=== PATIENT | female | born 1975 | race Caucasian/White ===

== ENCOUNTER 2020-05-05 00:23 | Emergency (ER) | payer MEDICAID ==
[~2020-05-05] VITALS: Ht 165.1 cm; Wt 65.8 kg
[~2020-05-05 00:23] MED LIST: AMLO5TAB PO; HYDR-3229 PO
[2020-05-05 00:34] VITALS: BP 141/98
[2020-05-05] MEDS ORDERED: CEPH500C16 PO (00:54)
[2020-05-05] MEDS ORDERED: IBUP-2213 PO (00:54)
[2020-05-05 01:00] VITALS: BP 141/98
== END 2020-05-05 01:00 | disposition home or self-care (01) ==
LOC: MED 00:23
DX: L03.114 Cellulitis of left upper limb (principal); J45.909 Unspecified asthma, uncomplicated; I10 Essential (primary) hypertension; F17.210 Nicotine dependence, cigarettes, uncomplicated; Z90.49 Acquired absence of other specified parts of digestive tract
CPT/HCPCS: 99283

== ENCOUNTER 2021-11-22 07:15 | Emergency (ER) | payer MEDICAID ==
[~2021-11-22] VITALS: Ht 165.1 cm; Wt 72.1 kg
[~2021-11-22 07:15] MED LIST changes: +CEPH500C16 PO; +IBUP-2213 PO
[2021-11-22 07:28] VITALS: BP 166/95
--- NOTE | 2021-11-22 07:37 | NUR ---
PT AMB TO BED 4
[2021-11-22] MEDS ORDERED: ALBUTEROL SULFATE/IPRATROPIU 3 ML SOL IH ONE (07:40)
[2021-11-22] MEDS ORDERED: ALBUTEROL 0.083% 2.5 MG/3 ML NEBU INH ONE (07:40)
--- NOTE | 2021-11-22 07:50 | NUR ---
DR CHOI AT BEDSIDE.
--- NOTE | 2021-11-22 08:01 | NUR ---
RT AT BEDSIDE.
--- NOTE | 2021-11-22 08:06 | NUR ---
46 Y/O F C/O COUGH, SOB X 3 DAYS. PT WAS SEEN AT [facility] & GOT BREATHING TREATMENT & PREDNISONE. NKA PMH: ASTHMA, HTN
[2021-11-22] MEDS ORDERED: methylPREDNISolone SS 125 MG/2 ML VIAL IVP ONE (08:25)
[2021-11-22] MEDS ORDERED: MAG SULF 2000 MG/WATER PREMIX 50 ML IV ONE (08:25)
--- NOTE | 2021-11-22 08:33 | NUR ---
X-RAY AT BEDSIDE.
[2021-11-22] MEDS ORDERED: ATRMDI IH (10:35)
[2021-11-22] MEDS ORDERED: ALBU0.0912 INH (10:35)
[2021-11-22 10:51] VITALS: BP 110/82
--- NOTE | 2021-11-22 10:53 | NUR ---
Patient discharged with v/s stable. Written and verbal after care instructions given and explained. Patient alert, oriented and verbalized understanding of instructions. Ambulatory with steady gait. All questions addressed prior to discharge. ID band removed. Patient advised to follow up with PMD. Rx of ALBUTEROL SULFATE, IBRATROPIUM BROMIDE given. Opportunity to ask questions provided and answered.
--- NOTE | 2021-11-22 10:54 | NUR ---
The patient's care was reviewed and supervised by Talita Becerra RN.
== END 2021-11-22 10:51 | disposition home or self-care (01) ==
LOC: MED 07:15
DX: J45.901 Unspecified asthma with (acute) exacerbation (principal); I10 Essential (primary) hypertension; Z79.899 Other long term (current) drug therapy
CPT/HCPCS: 71045; 94640; 96365; 96366; 96375; 99284; J2930; J3475; Q0092

== ENCOUNTER 2021-12-20 03:45 | Emergency (ER) | payer MEDICAID ==
[~2021-12-20] VITALS: Ht 165.1 cm; Wt 72.6 kg
[~2021-12-20 03:45] MED LIST changes: +ALBU0.0912 INH; +ATRMDI IH
[2021-12-20 04:01] VITALS: BP 137/105
--- NOTE | 2021-12-20 04:07 | NUR ---
PT TAKEN TO BED 7
--- NOTE | 2021-12-20 04:27 | NUR ---
Dr. Zavaleta examining patient.
[2021-12-20] MEDS ORDERED: ALBUTEROL SULFATE/IPRATROPIU 3 ML SOL IH ONE (04:30)
--- NOTE | 2021-12-20 04:36 | NUR ---
Respiratory Therapist at bedside for respiratory intervention.
--- NOTE | 2021-12-20 04:45 | NUR ---
DUONEB TX GIVEN W 0 ADVERSE REACTIONS
[2021-12-20] MEDS ORDERED: ALBU0.0912 IH (05:14)
[2021-12-20] MEDS ORDERED: PRED20TA5 PO (05:14)
--- NOTE | 2021-12-20 05:15 | NUR ---
Pt given D/C paperwork, requesting to speak to
--- NOTE | 2021-12-20 05:39 | NUR ---
X-Ray at bedside.
[2021-12-20 06:07] LABS: BARBITURATE, URINE NEGATIVE ng/ml (NEG <=200); BENZODIAZEPINE, URINE NEGATIVE ng/mL (NEG <=200); CANNABINOID, URINE NEGATIVE ng/mL (NEG <=50); COCAINE, URINE NEGATIVE ng/mL (NEG <=300); OPIATE, URINE NEGATIVE ng/mL (NEG <=2000); PHENCYCLIDINE SCREEN,URINE NEGATIVE ng/mL (NEG <=25)
== END 2021-12-20 05:56 | disposition home or self-care (01) ==
LOC: MED 03:45
DX: J45.901 Unspecified asthma with (acute) exacerbation (principal); I10 Essential (primary) hypertension; F17.210 Nicotine dependence, cigarettes, uncomplicated; Z98.51 Tubal ligation status; Z71.6 Tobacco abuse counseling; Z79.899 Other long term (current) drug therapy; Z79.2 Long term (current) use of antibiotics; Z79.1 Long term (current) use of non-steroidal anti-inflammatories (NSAID)
CPT/HCPCS: 71045; 80305; 81025; 94640; 99284; Q0092